=== PATIENT | male | born 1985 | race Caucasian/White ===

== ENCOUNTER 2021-04-03 03:45 | Day surgery (SDC) | payer OTHER, SELFPAY ==
[2021-04-03] VITALS (13 sets, daily range): BP systolic 105–135; BP diastolic 59–93; PULSE 78–98; RESP 16–22; TEMP 35.7–36.6; O2SAT 95–100; BMI 33.1
[2021-04-03] MEDS: Glucagon 1 MG/ML Syringe IV (04:30)
[2021-04-03] MEDS: LORazepam 2 MG/ML Syringe 1 MG IV (04:32)
--- NOTE | 2021-04-03 06:47 | EX.ED.DYSGE1 ---
HPI History of Present Illness Chief Complaint: Foreign Body Narrative Narrative: Patient is a 36-year-old male who states that he has had multiple esophageal foreign bodies in the past. He states his most recent was approximately 2 months ago and was done at an outside facility near [place]. He states that he was eating last night around 7 when he swallowed some chicken and fell like it got stuck. He states he waited multiple hours at home as sometimes this would resolve on its own. He states despite waiting he has had persistent vomiting and difficulty swallowing his secretions and therefore has concerned he may need an EGD to remove the obstruction and comes in for evaluation. [facility] Medical History (Updated 04/03/21 @ 06:[address] Clinton Russell DO) GERD (gastroesophageal reflux disease) Hiatal hernia Allergy/AdvReac Type Severity Reaction Status Date / Time No Known Allergies Allergy Verified 04/03/21 03:49 Social History Smoking Status: Never smoker [facility] ED Constitutional Constitutional ED: Denies chills or fever(s) ENT ENT ED: Reports other Details: Positive difficulty swallowing ; Denies sore throat Cardiovascular Cardiovascular: Denies chest pain Respiratory/Chest Respiratory/Chest: Denies cough or dyspnea Gastrointestinal Gastrointestinal: Reports nausea and vomiting; Denies abdominal pain or diarrhea Genitourinary Genitourinary ED: Denies dysuria Musculoskeletal Musculoskeletal: Denies myalgias Integumentary Denies rash Neurologic Neurologic: Denies headache(s) Hematologic/Lymphatic Hematologic/Lymphatic: Denies easy bleeding or easy bruising EXAM Physical Exam Const Vital Signs: 04/03/21 03:45 04/03/21 03:49 04/03/21 06:03 Temperature 98 F Temperature Source Temporal Pulse Rate 89 98 Respiratory Rate 16 17 Respiratory Effort Normal Respiratory Pattern Normal Blood Pressure 125/86 H 134/88 H Blood Pressure Mean 99 103 Pulse Ox 95 99 Oxygen Delivery Method Room Air Room Air Positive well nourished and well developed General Appearance ED: well developed HEENT Reports moist mucous membranes HEENT Narrative: No tongue or lip swelling no oral lesions no airway edema or compromise Eyes PERRL and EOMs intact bilaterally Neck supple Neck Narrative: No pain with external manipulation of the thyroid cartilage no crepitance palpated Resp normal respiratory effort and clear to auscultation bilaterally Cardio regular rate and regular rhythm GI normal to inspection, nondistended, normoactive bowel sounds, non-tender, non-distended and no masses Auscultation: normoactive bowel sounds Palpation: soft Extremity normal to inspection Neuro oriented x3 and CN's II-XII intact bilaterally Sensorium / Orientation: alert Psych mental status grossly normal Skin no rashes or lesions noted MDM MDM MDM Narrative Medical decision making narrative: Patient presented to the ER with stable vitals and no airway distress or compromise. His history and exam is consistent with a distal esophageal foreign body. As he has had this multiple times in the past I did elect to try IV glucagon and Ativan followed by patient drinking soda pop to increased pressure in the esophagus and force the obstruction through. Patient had no improvement with this however. Therefore patient will need an EGD to remove the obstruction. GI was contacted and will add him onto their cases that they have scheduled for later today. Therefore patient will remain in the ER until that time and after he has a foreign body removed will be safe for discharge. Discharge Plan Triage Chief Complaint: Foreign Body ED Provider: Clinton Russell Dx/Rx/DC Orders Clinical Impression: Distal esophageal obstruction due to foreign body Instructions: ED Esophageal Foreign Body, Resolved Primary Care Provider: Care Physician,No Primary Referrals: Raghu Cardoso DO [STAFF PHYSICIAN] - 1-2 Weeks Care Physician,No Primary [Primary Care Provider] -
[2021-04-03] MEDS: 0.9% Normal Saline 1,000 ML 999 ML IV (07:34)
[2021-04-03] MEDS: Ondansetron 4 MG/2 ML Vial IV (07:49)
--- NOTE | 2021-04-03 10:46 | ED.RN ---
PT TAKEN TO A/C AT 1030.
[2021-04-03] MEDS: 0.9% Normal Saline 1,000 ML 100 ML IV (10:50)
--- NOTE | 2021-04-03 11:05 | EX.PCM.CON.G ---
HPI Consult Data Date of Consult: 04/03/21 HPI Narrative HPI Narrative: LAVELL ANDREW, 36-year-old male who states that he has had multiple esophageal foreign bodies in the past. He does not know if he has history of eosinophilic esophagitis. He does not take any medicines on a daily basis. He was given glucagon in the ED but there was no resolution of foreign body sensation. He states his most recent was approximately 2 months ago and was done at an outside facility near [place]. He states that he was eating last night around 7 when he swallowed some chicken and fell like it got stuck. He states he waited multiple hours at home as sometimes this would resolve on its own. He states despite waiting he has had persistent vomiting and difficulty swallowing his secretions and therefore has concerned he may need an EGD to remove the obstruction and comes in for evaluation. [facility] Medical History (Updated 04/03/21 @ 11:[address] Krishnamurthy Friend, DO) GERD (gastroesophageal reflux disease) Hiatal hernia Home Medications NK 04/03/21 [History Last Taken Unknown] Allergy/AdvReac Type Severity Reaction Status Date / Time No Known Allergies Allergy Verified 04/03/21 10:44 Social History Smoking Status: Never smoker ROS Review of Systems ROS Unobtainable: other Constitutional Constitutional: Denies fatigue, fever(s), poor appetite, weight gain or weight loss ENT HEENT: Denies mouth lesions Cardiovascular Cardiovascular: Denies abdominal bloating, abdominal edema or abdominal pain Respiratory/Chest Respiratory/Chest: Denies change in mental status, change in phlegm color, chest congestion or chest tightness Gastrointestinal Gastrointestinal: Denies belching, bloating, change in bowel habits, change in stool character, chewing difficulty, coffee ground emesis, constipation, cramping, diarrhea, dyspepsia, dysphagia, early satiety, excessive flatus, fecal incontinence, heartburn, hematemesis, hematochezia, hemorrhoids, loose stools, melena, nausea, odynophagia, rectal bleeding, tenesmus, vomiting or weight changes Genitourinary Genitourinary: Denies abdominal discomfort, burning urination or itching Musculoskeletal Musculoskeletal: Reports as per HPI; Denies muscle weakness or myalgias Integumentary Integumentary: Denies jaundice Neurologic Neurologic: Denies lack of coordination or weakness Psychiatric Psychiatric: Denies confusion, depression, memory loss, mood swings, paranoia or suicidal ideation Endocrine Endocrinology: Denies systems reviewed and no addt'l complaints, except as documented Hematologic/Lymphatic Hematologic/Lymphatic: Denies anemia, easy bleeding, easy bruising or lymphadenopathy Allergic/Immunologic Allergic/Immunologic: Denies systems reviewed and no addt'l complaints, except as documented Physical Exam Const alert General Appearance: cooperative Orientation / Consciousness: oriented to person HEENT hearing grossly normal bilaterally Head and Scalp: normal to inspection Face and Sinus: face symmetric Nose: external nose normal Mouth: oral and palatal mucosa normal Eyes conjunctivae normal General Eye: normal appearance of both eyes Neck full ROM General: normal visual inspection Lymph Lymphatic: no lymphadenopathy noted Chest inspection of chest normal and palpation of chest normal Chest: symmetrical chest wall rise Resp normal respiratory effort Effort and Inspection: able to speak in complete sentences Cardio regular rate GI non-distended Percussion: normal to percussion Rectal Exam: deferred Neuro Speech: speech normal Gait (Neuro): normal gait Lab / Micro Data Micro: Microbiology 04/03/21 10:32 Nasal Secretion SARS-CoV-2 Antigen (Rapid) - Final Assessment & Plan Assessment/Plan (1) Distal esophageal obstruction due to foreign body: PLAN: Plan is for EGD to remove foreign body from the esophagus. He should be evaluated for eosinophilic esophagitis and also esophageal dysmotility disorder with esophageal manometry studies and barium swallow as an outpatient. (2) GERD (gastroesophageal reflux disease): PLAN: Patient will likely need a prescription of a PPI therapy upon discharge. Charges/Coding Visit Charges Inpatient E&M: 43736 Init Hosp L2
--- NOTE | 2021-04-03 13:22 | OP.CCLET_ITS ---
12/02/2021 No Primary Care Physician Re : Upper GI endoscopy procedure for Arturo Murillo Dear Care Physician This procedure was performed on Saturday, April 03, 2021. My impressions and recommendations are as follows: Impressions : - Food in the middle third of the esophagus. Removal was successful. - Nan-Chin tear. Clips were placed. - Normal stomach. - Normal second portion of the duodenum. Recommendations : - Discharge patient to home. - Full liquid diet today. - Continue present medications. - Use Prevacid (lansoprazole) 30 mg PO BID for 8 weeks. My findings are described in the full procedure note, which is enclosed. If I can be of further assistance, please feel free to contact me at . Sincerely, Raghu Cardoso, 04/03/2021 1:22:18 PM This report has been signed electronically.
--- NOTE | 2021-04-03 13:22 | OP.EGD_ITS ---
Patient Name: Arturo Murillo Procedure Date: 04/03/2021 11:32 AM Date of : 1985 Age: 36 Procedure: Upper GI endoscopy Indications: Dysphagia Providers: Raghu Cardoso DO Medicines: See the Anesthesia note for documentation of the administered medications Patient Profile: This is a 36 year old male. Refer to note in patient chart for documentation of history and physical. Patient has symptoms. The symptoms first began 01,. He is status post EGD for foreign body removal within the past three months. Complications: No immediate complications. Procedure: Pre-Anesthesia Assessment: - Prior to the procedure, a History and Physical was performed, and patient medications and allergies were reviewed. The patient is competent. The risks and benefits of the procedure and the sedation options and risks were discussed with the patient. All questions were answered and informed consent was obtained. Patient identification and proposed procedure were verified by the physician in the pre-procedure area. Mental Status Examination: alert and oriented. Airway Examination: normal oropharyngeal airway and neck mobility. Respiratory Examination: clear to auscultation. CV Examination: normal. Prophylactic Antibiotics: The patient does not require prophylactic antibiotics. Prior Anticoagulants: The patient has taken no previous anticoagulant or antiplatelet agents. ASA Grade Assessment: II - A patient with mild systemic disease. After reviewing the risks and benefits, the patient was deemed in satisfactory condition to undergo the procedure. The anesthesia plan was to use moderate sedation / analgesia (conscious sedation). Immediately prior to administration of medications, the patient was re-assessed for adequacy to receive sedatives. The heart rate, respiratory rate, oxygen saturations, blood pressure, adequacy of pulmonary ventilation, and response to care were monitored throughout the procedure. The physical status of the patient was re-assessed after the procedure. After obtaining informed consent, the endoscope was passed under direct vision. Throughout the procedure, the patient's blood pressure, pulse, and oxygen saturations were monitored continuously. The gastroscope was introduced through the mouth, and advanced to the second part of duodenum. The upper GI endoscopy was accomplished without difficulty. The patient tolerated the procedure well. Moderate Sedation: Moderate (conscious) sedation was administered by the endoscopy nurse and supervised by the endoscopist. The patient's oxygen saturation, heart rate, blood pressure and response to care were monitored. Total physician intraservice time was 15 minutes. Findings: Food was found in the middle third of the esophagus. Removal of food was accomplished. A 8 mm bleeding Nan-Chin tear with stigmata of recent bleeding was found. To prevent bleeding post-maneuver, three hemostatic clips were successfully placed. There was no bleeding at the end of the procedure. The entire examined stomach was normal. The second portion of the duodenum was normal. Impression: - Food in the middle third of the esophagus. Removal was successful. - Nan-Chin tear. Clips were placed. - Normal stomach. - Normal second portion of the duodenum. Recommendation: - Discharge patient to home. - Full liquid diet today. - Continue present medications. - Use Prevacid (lansoprazole) 30 mg PO BID for 8 weeks. Procedure Code(s): --- Professional --- 60833, Esophagogastroduodenoscopy, flexible, transoral; with removal of foreign body(s) 64477, 59, Moderate sedation services provided by the same physician or other qualified health rn complex care performing the diagnostic or therapeutic service that the sedation supports, requiring the presence of an independent trained observer to assist in the monitoring of the patient's level of consciousness and physiological status; initial 15 minutes of intraservice time, patient age 5 years or older CPT copyright 2017 [employer]. All rights reserved. The codes documented in this report are preliminary and upon anhydrous ammonia production supervisor review may be revised to meet current compliance requirements. Raghu Cardoso DO 04/03/2021 1:22:18 PM This report has been signed electronically. Number of Addenda: 1 Note Initiated On: 04/03/2021 11:32 AM Addendum Number: 1 Addendum Date: 12/02/2021 6:11:33 AM MAC was used instead of moderate sedation for the patient. Raghu Cardoso DO 12/02/2021 6:11:37 AM This report has been signed electronically.
== END 2021-04-03 23:59 | disposition home or self-care (01) ==
LOC: ED 04:11 → SDC 10:24 → ACINP 10:24
PROVIDERS: Emergency Provider Emergency Medicine; Visit Provider Internal Medicine Gastroenterology
PROC: 0DJ08ZZ Inspection of Upper Intestinal Tract, Via Natural or Artificial Opening Endoscopic (ICD-10-PCS; CPT 43235; principal; 2021-04-03 10:30)
DX: K22.2 Esophageal obstruction (principal); T18.128A Food in esophagus causing other injury, initial encounter; K22.6 Gastro-esophageal laceration-hemorrhage syndrome; X58.XXXA Exposure to other specified factors, initial encounter; Y93.9 Activity, unspecified; Y92.9 Unspecified place or not applicable
CPT/HCPCS: 43247; 87426; 99281; J7030; A4216; J1610; J2405; J3490

== ENCOUNTER 2021-04-21 13:19 | Outpatient (CLI) | payer OTHER, SELFPAY ==
[2021-04-28 02:07] LABS: Immunoglobulin A 451 mg/dL (90-386); Immunoglobulin E 124 IU/mL (6-495); Immunoglobulin G 1117 mg/dL (603-1613)
[2021-04-28 04:07] LABS: Beef <0.10 kU/L (Class 0); Corn 0.26 kU/L (Class 0/I); Egg, Whole 0.12 kU/L (Class 0/I); Milk (Cow) 0.12 kU/L (Class 0/I); Peanut 0.51 kU/L (Class I); Pork <0.10 kU/L (Class 0); Soybean 0.36 kU/L (Class I); Wheat 2.66 kU/L (Class III)
[2021-04-28 13:32] LABS: Immunoglobulin M 93 mg/dL (20-172)
[2021-04-28 13:33] LABS: Chocolate <0.10 kU/L (Class 0)
== END 2021-04-21 23:59 | disposition short-term general hospital (02) ==
LOC: LAB 13:22
PROVIDERS: Referring Provider Internal Medicine Gastroenterology; Visit Provider Internal Medicine Gastroenterology
DX: K21.9 Gastro-esophageal reflux disease without esophagitis (principal); T18.108A Unspecified foreign body in esophagus causing other injury, initial encounter
CPT/HCPCS: 36415; 82784; 82785; 86003; 86005

== ENCOUNTER → 2021-11-05 | Outpatient (CLI) | payer OTHER, SELFPAY ==
[2021-11-05 15:31] LABS: CRP 3.78 mg/L (0.0-3.0)
[2021-11-05 15:57] LABS: Erythrocyte Sedimentation Rate 9 mm/hr (0-20)
[2021-11-11 09:08] LABS: Immunoglobulin A 390 mg/dL (90-386); Immunoglobulin G 1038 mg/dL (603-1613); Immunoglobulin M 83 mg/dL (20-172)
[2021-11-12 04:07] LABS: Endomysial Antibody IgA Negative (Negative); Immunoglobulin A 399 mg/dL (90-386)
[2021-11-12 11:22] LABS: t-Transglutaminase IgA <2 U/mL (0-3)
[2021-11-12 11:51] LABS: Immunoglobulin E 93 IU/mL (6-495)
== END | disposition home or self-care (01) ==
LOC: LAB 14:21
PROVIDERS: Referring Provider Internal Medicine Gastroenterology; Visit Provider Internal Medicine Gastroenterology
DX: K20.0 Eosinophilic esophagitis (principal)
CPT/HCPCS: 36415; 82784; 82785; 83516; 85652; 86140; 86255